=== PATIENT | male | born 1965 | race Caucasian/White ===

== ENCOUNTER 2016-09-06 16:40 | Outpatient (CLI) | payer OTHER ==
--- NOTE | 2016-09-06 19:59 | Diagnostic Imaging Report ---
Report Submission Date: Sep 06, 2016 5:24:16 PM CDT Patient ~ Study Name: MIRANDA ZALDIVAR ~ Date: Sep 06, 2016 4:47:24 PM CDT ~ Modality Type: CR Gender: M ~ Description: CHEST : 61 ~ Institution: [facility] Physician: CASTILLO ROMAN ~ ~ ~ ~ Pa and lateral chest Clinical history : Cough for weeks Technique pa and lateral upright Findings: The lung jean are clear. I see no hilar or mediastinal mass. There is no pleural effusion. There is thoracic spondylosis. The lung jean are mildly hyperinflated. Left ventricle is enlarged Impression: Mild lung field hyperinflation No acute pulmonary disease ~ Electronically signed on Sep 06, 2016 5:24:16 PM CDT by: Truong BEY
== END 2016-09-06 16:43 ==
LOC: RAD 16:40
PROVIDERS: ATTEND Physician Assistant
DX: R05 Cough (principal)
CPT/HCPCS: 71020